=== PATIENT | female | born 1960 | race Caucasian/White ===

== ENCOUNTER → 2017-11-04 | Outpatient (CLI) | payer MEDICARE, MEDICAID ==
--- NOTE | 2017-11-04 16:14 | Diagnostic Imaging Report ---
INDICATION: Limping. TIME OF EXAM: 3:42 PM FINDINGS: Three views of the left knee demonstrate normal alignment. The joint spaces are well maintained. The articular surfaces are smooth. No fracture, dislocation or effusion is seen. IMPRESSION: No acute bony abnormality is detected. Dictated by: Dictated on workstation # [id number]
--- NOTE | 2017-11-04 16:15 | Diagnostic Imaging Report ---
INDICATION: Limping. TIME OF EXAM: 3:37 PM FINDINGS: Two views of left hip demonstrate normal femoroacetabular alignment. The joint space is well maintained. The femoral head and neck are intact. No fractures are seen. Left-sided rami are intact. IMPRESSION: No acute bony abnormality is detected. Dictated by: Dictated on workstation # [id number]
== END ==
LOC: RAD 15:08
PROVIDERS: ATTEND Family Medicine
DX: R26.89 Other abnormalities of gait and mobility (principal)
CPT/HCPCS: 73502; 73562

== ENCOUNTER 2022-10-20 13:26 | Emergency (ER) | payer MEDICARE, MEDICAID ==
[~2022-10-20] VITALS: Ht 160 cm; Wt 70.0 kg
--- NOTE | 2022-10-20 14:19 | ED Head Injury ---
General Chief Complaint: Laceration Stated Complaint: FALL | HEAD INJ Nursing Triage Note: PT IN MR, STAFF AT BEDSIDE, STATES THAT PT FELL IN THE BATHROOM, LAC TO FOREHEAD APPROX 2+ CM BLEEDING ON ARRIVAL THAT NEEDS REPAIRED. Source: caregiver Exam Limitations: no limitations History of Present Illness Date Seen by Provider: Oct 20, 2022 Time Seen by Provider: 14:00 Initial Comments 62-year-old female presents after she tripped and fell in the bathroom, large laceration noted to forehead. Allergies and Home Medications Allergies Coded Allergies: No Known Drug Allergies (Unverified , 10/20/22) Past Pgthphy-Lmwzdo-Idcohu Hx Patient Social History Tobacco Use?: No Substance use?: No Alcohol Use?: No Past Medical History Surgery/Hospitalization HX: MR, SEIZURES Physical Exam Vital Signs Vital Signs - First Documented 10/20/22 10/20/22 13:32 16:10 Pulse 85 Resp 20 B/P (MAP) 126/86 (99) Pulse Ox 97 O2 Delivery Room Air O2 Flow Rate 1.50 Capillary Refill : Less Than 3 Seconds Height, Weight, BMI Height: '" Weight: lbs. oz. kg; 27.00 BMI Method: Procedures/Interventions Procedure: Laceration repair Patient Education: Explained Benefits Agreement on procedure with pt: Yes (Permission given by guardian) Breath Sounds per Auscultation: Clear Heart Sounds per Auscultation: Regular Airway Exam: Neck Full Range of Motion Severe MR, unable to open mouth on command to visualize. Patient occasionally opens mouth on own, able to open mouth wide. Wound Location: Face Wound Length (cm): 3 Wound's Depth, Shape: linear Wound Explored: clean Anesthesia: 1% Lidocaine Volume Anesthetic (ccs): 5 Suture: Ethlion Suture Size: 5-0 Number of Sutures: 8 Progress 2 lacerations to face, 1 to forehead, 1 to the bridge of nose. Forehead approximately 3 cm, closed with seven 5-0 Ethilon sutures. 1 cm laceration to bridge of nose, closed with one 5-0 Ethilon suture. Progress/Results/Core Measures Results/Orders My Orders Orders - TINY ROOT APRN Midazolam Injection (Versed Injection) (10/20/22 14:30) Lidocaine 1% Inj 20 Ml (Xylocaine 1% Inj (10/20/22 14:30) Lidocaine 1% Inj 10 Ml (Xylocaine 1% Inj (10/20/22 14:33) Midazolam Injection (Versed Injection) (10/20/22 15:15) Ketamine Syringe (Ketamine Syringe) (10/20/22 16:00) Ketamine Injection (Ketalar Injection) (10/20/22 16:27) Ketamine Injection (Ketalar Injection) (10/20/22 16:30) Medications Given in ED Current Medications Medications Dose Ordered Sig/Haresh Route Start Time Stop Time Status Last Admin Dose Admin Ketamine HCl 50 mg ONCE ONCE IV 10/20/22 16:30 10/20/22 16:31 DC 10/20/22 16:29 50 MG Ketamine HCl 100 mg ONCE ONCE IV 10/20/22 16:00 10/20/22 16:01 DC 10/20/22 16:18 100 MG Lidocaine HCl 10 ml STK-MED ONCE .ROUTE 10/20/22 14:33 10/20/22 14:35 DC 10/20/22 16:10 10 ML Midazolam HCl 2 mg ONCE ONCE IM 10/20/22 14:30 10/20/22 14:31 DC 10/20/22 14:35 2 MG Midazolam HCl 2 mg ONCE ONCE IM 10/20/22 15:15 10/20/22 15:16 DC 10/20/22 15:18 2 MG Vital Signs/I&O 10/20/22 10/20/22 10/20/22 10/20/22 13:32 16:10 16:10 16:14 Pulse 85 92 93 Resp 20 8 15 B/P (MAP) 126/86 (99) 126/83 (97) 139/84 (102) Pulse Ox 97 95 98 O2 Delivery Room Air Room Air Nasal Cannula Nasal Cannula O2 Flow Rate 1.50 1.50 10/20/22 10/20/22 10/20/22 10/20/22 16:20 16:25 16:30 16:35 Pulse 94 103 92 93 Resp 23 28 12 13 B/P (MAP) 139/37 (71) 143/81 (101) 98/82 (87) 141/82 (101) Pulse Ox 98 98 95 100 O2 Delivery Nasal Cannula Nasal Cannula Nasal Cannula Nasal Cannula O2 Flow Rate 1.50 1.50 1.50 1.50 Blood Pressure Mean: 99 Departure Impression Primary Impression: Laceration Disposition: 01 HOME, SELF-CARE Condition: Stable Departure-Patient Inst. Decision time for Depature: 17:01 Referrals: ZA TORRES DO (PCP/Family) Primary Care Physician Patient Instructions: Laceration Repair With Stitches (DC), Moderate Sedation in Adults (DC) Add. Discharge Instructions: Monitor for signs of infection, including redness, swelling, discolored odorous drainage, fever. Return to the ER to have your sutures removed in 5 days. She may shower and let water run over the sutures, but do not soak or scrub vigorously. All discharge instructions reviewed with patient and/or family. Voiced understanding. TINY ROOT APRN Oct 20, 2022 14:19
[2022-10-20] MEDS ORDERED: LIDOCAINE 1% INJ 20 ML VIAL INJ ONE (14:30)
[2022-10-20] MEDS ORDERED: MIDAZOLAM 2 MG/2 ML (VERSED) VIAL IM ONE ×2 (14:30→15:15)
[2022-10-20] MEDS ORDERED: LIDOCAINE 1% INJ 10 ML VIAL ONE (14:33)
[2022-10-20] MEDS: KETAMINE 50 MG/5 ML SYRINGE IV ONE ×2 (16:17→16:18)
[2022-10-20] MEDS ORDERED: KETAMINE HCL 100 MG/ML 5 ML VIAL ONE (16:27)
[2022-10-20] MEDS ORDERED: KETAMINE HCL 100 MG/ML 5 ML VIAL IV ONE (16:30)
[2022-10-20 17:14] VITALS: BP 114/80
== END 2022-10-20 17:14 | disposition home or self-care (01) ==
LOC: EDUNIT# 13:26 → ER 13:29
DX: S01.81XA Laceration without foreign body of other part of head, initial encounter (principal); W01.0XXA Fall on same level from slipping, tripping and stumbling without subsequent striking against object, initial encounter; Y92.002 Bathroom of unspecified non-institutional (private) residence as the place of occurrence of the external cause
CPT/HCPCS: 93041

== ENCOUNTER 2022-10-27 10:39 | Emergency (ER) | payer MEDICARE, MEDICAID ==
[~2022-10-27] VITALS: Ht 157 cm; Wt 63.0 kg
== END 2022-10-27 11:08 | disposition home or self-care (01) ==
LOC: EDUNIT# 10:39 → ER 10:41
DX: Z48.02 Encounter for removal of sutures (principal)